=== PATIENT | female | born 1960 | race Caucasian/White ===

== ENCOUNTER 2020-01-18 12:22 | Inpatient (IN) ==
[2020-01-18 12:30] VITALS: BMI 29.3
[2020-01-18] MEDS ORDERED: DUONEB 0.5 MG/3 MG (3 mL) NEB ONE ×4 (12:40→17:06)
[2020-01-18] MEDS ORDERED: SOLU-Medrol 125 MG VIAL IVP ONE (12:40)
[2020-01-18] MEDS ORDERED: NS 1000 ML 1,000 ML ONE (12:46)
[2020-01-18] MEDS ORDERED: SOLU-Medrol 125 MG VIAL ONE (12:46)
[2020-01-18] MEDS ORDERED: NS 1000 ML 1,000 ML IV SCH ×2 (13:00→14:00)
[2020-01-18 13:14] LABS: ABG HCO3 27.4 mmol/L (22-26)
[2020-01-18 13:15] LABS: ABG ALLEN TEST POS
[2020-01-18 13:19] LABS: BASOPHILS % (AUTO) 0.3 % (0.2-1.0); EOSINOPHILS % (AUTO) 0.3 % (0.9-2.9); HEMATOCRIT 43.3 % (36.0-47.0); HEMOGLOBIN 14.7 g/dL (12.0-16.0); LYMPHOCYTES # (AUTO) 0.6 X10^3/uL (1.3-2.9); LYMPHOCYTES % (AUTO) 6.8 % (21.0-51.0); MEAN CORPUSCULAR HEMOGLOBIN 29.7 pg (27.0-34.0); MEAN CORPUSCULAR HGB CONC 33.9 g/dL (33.0-35.0); MEAN CORPUSCULAR VOLUME 87.8 fL (80.0-100.0); MEAN PLATELET VOLUME 8.6 fL (7.4-11.0); MONOCYTES # (AUTO) 0.7 x10^3/uL (0.3-0.8); NEUTROPHILS # (AUTO) 7.8 x10^3/uL (2.2-4.8); NEUTROPHILS % (AUTO) 84.6 % (42.0-75.0); PLATELET COUNT 284 X10^3/uL (150.0-450.0); RED BLOOD COUNT 4.93 X10^6/uL (3.5-5.4); RED CELL DISTRIBUTION WIDTH 13.6 % (11.6-16.5); WHITE BLOOD COUNT 9.2 X10^3/uL (3.6-10.0)
[2020-01-18 13:28] LABS: ALANINE AMINOTRANSFERASE 38 Units/L (12-78); ALBUMIN 2.6 g/dL (3.4-5.0); ALKALINE PHOSPHATASE 154 Units/L (46-116); ASPARTATE AMINO TRANSFERASE 50 Units/L (15-37); BLOOD UREA NITROGEN 15 mg/dL (7-18); CALCIUM 11.2 mg/dL (8.5-10.1); CARBON DIOXIDE 32.7 mmol/L (21-32); CHLORIDE 96 mmol/L (98-107); COR CA(FOR HYPOALB) 12.3 mg/dL (8.5-10.1); COR NA(FOR HYPERGLY) 139 mmol/L (136-145); CREATININE 0.89 mg/dL (0.55-1.02); SODIUM 135 mmol/L (136-145); TOTAL PROTEIN 7.8 g/dL (6.4-8.2); eGFR NON BLACK RACES > 60 (>60)
--- NOTE | 2020-01-18 13:47 | DR.GENAD ---
HPI Time Seen Time Seen by Provider: 01/18/20 12:31 PCP Primary Care Physician: [facility] Complaint/Symptoms Chief Complaint:: PT WAS DIAGNOSED WITH COVID ON 01/06/20 AND WAS TREATED WITH ANTIBIOTICS AND WAS PLACED ON OXYGEN AT 3 LITERS. PT HAS CONTINUES TO BECOME MORE SHORT OF BREATH. IN TRIAGE O2 SAT IS 86% ON 3 LITERS. PT HAD CHEST XRAY TODAY AND WAS DIAGNOSED WITH BILATERAL PNEUMONIA Source History Provided: Patient Mode of Arrival Mode of Arrival: Ambulatory Timing Onset of Chief Complaint: 01/18/20 PMH PMH Past Medical History: Yes Past Medical History: Diabetes and Hypertension Past Medical History Comment: CERVIAL CANCER Past Surgical History: Yes Surgical History: Ortho Surgery Past Surgical History Comment: CERVIAL ABLATION Family History History of Family Medical Conditions: Yes Family Medical History: Diabetes Mellitus, Cancer and Coronary Artery Disease Social History Does patient currently use any type of tobacco product: No Have you used tobacco products in the last 12 months: No Type of Tobacco Use: None Does any household member use tobacco: No Alcohol Use: None Do you use any recreational Drugs:: No Lives With: Family Lives Where: Home Infectious screening In the last 2 months have you had wt loss of >10#?: NO Have you had fever, night sweats or hemotysis?: No Have you traveled outside the country in the last 6 months?: No Isolation: Standard PE Vital Signs Vitals: Temperature 97.9 F Pulse Rate [Right Radial] 109 Pulse Rate 102 Respiratory Rate 22 Blood Pressure 151/80 O2 Sat by Pulse Oximetry 84 COURSE Consultation Called: 13:46 Call Returned: 13:46 Consultation Comments: case discussed admit on covid protocol and order Convalesent plasma ROR Labs Reviewed Result Diagrams: 01/18/20 12:58 01/18/20 12:58 Laboratory: WBC 9.2 X10^3/uL (3.6-10.0) 01/18/20 12:58 RBC 4.93 X10^6/uL (3.5-5.4) 01/18/20 12:58 Hgb 14.7 g/dL (12.0-16.0) 01/18/20 12:58 Hct 43.3 % (36.0-47.0) 01/18/20 12:58 MCV 87.8 fL (80.0-100.0) 01/18/20 12:58 MCH 29.7 pg (27.0-34.0) 01/18/20 12:58 MCHC 33.9 g/dL (33.0-35.0) 01/18/20 12:58 RDW 13.6 % (11.6-16.5) 01/18/20 12:58 Plt Count 284 X10^3/uL (150.0-450.0) 01/18/20 12:58 MPV 8.6 fL (7.4-11.0) 01/18/20 12:58 Neut % (Auto) 84.6 % (42.0-75.0) H 01/18/20 12:58 Lymph % (Auto) 6.8 % (21.0-51.0) L 01/18/20 12:58 [place] % (Auto) 8.0 % (0.0-13.0) 01/18/20 12:58 Eos % (Auto) 0.3 % (0.9-2.9) L 01/18/20 12:58 Baso % (Auto) 0.3 % (0.2-1.0) 01/18/20 12:58 Neut # (Auto) 7.8 x10^3/uL (2.2-4.8) H 01/18/20 12:58 Lymph # (Auto) 0.6 X10^3/uL (1.3-2.9) L 01/18/20 12:58 [place] # (Auto) 0.7 x10^3/uL (0.3-0.8) 01/18/20 12:58 Eos # (Auto) 0.0 x10^3/uL (0.0-0.2) 01/18/20 12:58 Baso # (Auto) 0.0 X10^3/uL (0.0-0.1) 01/18/20 12:58 Absolute Nucleated RBC 0.0 /100WBC 01/18/20 12:58 Sample Site Rrad 01/18/20 13:00 ABG pH 7.490 (7.35-7.45) H 01/18/20 13:00 ABG pCO2 36.0 mmHg (35.0-45.0) 01/18/20 13:00 ABG pO2 42.0 mmHg (80.0-100.0) L* 01/18/20 13:00 ABG HCO3 27.4 mmol/L (22-26) H 01/18/20 13:00 ABG O2 Saturation 82.0 % (90-100) L* 01/18/20 13:00 ABG Base Excess 4.0 mmol/L (-2.0-2.0) H 01/18/20 13:00 Matt Test Pos 01/18/20 13:00 A-a Gradient 141.0 mmHg 01/18/20 13:00 FiO2 32.0 01/18/20 13:00 Blood Gas Comments Wanda well ah 01/18/20 13:00 Sodium 135 mmol/L (136-145) L 01/18/20 12:58 Corrected Sodium 139 mmol/L (136-145) 01/18/20 12:58 Potassium 4.2 mmol/L (3.5-5.1) 01/18/20 12:58 Chloride 96 mmol/L (98-107) L 01/18/20 12:58 Carbon Dioxide 32.7 mmol/L (21-32) H 01/18/20 12:58 BUN 15 mg/dL (7-18) 01/18/20 12:58 Creatinine 0.89 mg/dL (0.55-1.02) 01/18/20 12:58 Est GFR (MDRD) Af Amer > 60 (>60) 01/18/20 12:58 Est GFR (MDRD) Non-Af > 60 (>60) 01/18/20 12:58 Glucose 255 mg/dL (65-99) H 01/18/20 12:58 Calcium 11.2 mg/dL (8.5-10.1) H 01/18/20 12:58 Corrected Calcium 12.3 mg/dL (8.5-10.1) H 01/18/20 12:58 Total Bilirubin 0.50 mg/dL (0.2-1.0) 01/18/20 12:58 AST 50 Units/L (15-37) H 01/18/20 12:58 ALT 38 Units/L (12-78) 01/18/20 12:58 Alkaline Phosphatase 154 Units/L (46-116) H 01/18/20 12:58 C-Reactive Protein 141.20 mg/L (0-3.0) H 01/18/20 12:58 Total Protein 7.8 g/dL (6.4-8.2) 01/18/20 12:58 Albumin 2.6 g/dL (3.4-5.0) L 01/18/20 12:58 Globulin 5.2 g/dL (2.5-4.5) H 01/18/20 12:58 Albumin/Globulin Ratio 0.5 Ratio (1.1-2.1) L 01/18/20 12:58 Opioid Opioid Risk Tool Total: 0 Total Score Risk Category: Low Risk Copyright: [place] predicting aberrant behaviors
[2020-01-18] MEDS ORDERED: REMDESIVIR (INVESTIGATIONAL DRUG GS-5734) 200 MG in NS 250 ML IV 250 ML IV NR (14:00)
[2020-01-18] MEDS ORDERED: PLAQUENIL PO SCH (14:00)
--- NOTE | 2020-01-18 14:26 | RAD ---
HISTORYLOW SP02, COVID +STUDYCHEST, 1 VIEWCOMPARISONNoneFINDINGSThe heart is normal. The pulmonary vessels are slightly engorged centrally. There is hazy airspace opacity along the left midlung extending inferiorly and along the right midlung laterally. No effusion is seen.IMPRESSIONMinimal central pulmonary congestion.Hazy left basilar opacity and minimal right midlung opacity which could represent multisegmental bronchopneumonia. Recommend follow-up until complete resolution.Electronically signed by: DA DEL CID (Jan 18, 2020 14:26:00)
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
[2020-01-18] MEDS: ASCORBIC ACID INJ MULTI-DOSE VIAL 1,500 MG in NS 100 ML IV 100 ML IV SCH ×3 (15:28→21:05)
[2020-01-18] MEDS: ZINC SULFATE PO SCH ×2 (15:34→21:05)
[2020-01-18] MEDS: VITAMIN A PO SCH (15:35)
[2020-01-18] MEDS: DECADRON TAB PO SCH (15:42)
[2020-01-18] MEDS: TRICOR TAB 160 MG PO SCH (15:42)
[2020-01-18] MEDS: VITAMIN D (1.25MG) PO SCH (15:43)
[2020-01-18] MEDS ORDERED: MAALOX or MYLANTA PO PRN (16:13)
[2020-01-18] MEDS: NS 1000 ML 1,000 ML IV SCH (16:19)
[2020-01-18] MEDS: LOVENOX INJ 30 MG SYR SC SCH ×2 (16:19→21:05)
[2020-01-18] MEDS: ACTOS PO SCH (17:00)
[2020-01-18] MEDS: DUONEB 0.5 MG/3 MG (3 mL) NEB SCH ×2 (17:10→20:52)
[2020-01-18] MEDS: HumuLIN R SUBCUT PRN ×2 (17:24→21:05)
[2020-01-18] MEDS: SNACK - Diabetic Appropriate PO SCH (20:30)
[2020-01-18] MEDS: PULMICORT NEB TX 0.5 MG NEB SCH (20:52)
[2020-01-18] MEDS: GLUCOPHAGE XR 24-HR PO SCH (21:05)
[2020-01-19] MEDS: NS 1000 ML 1,000 ML IV SCH ×4 (00:40→15:22)
[2020-01-19] MEDS: ASCORBIC ACID INJ MULTI-DOSE VIAL 1,500 MG in NS 100 ML IV 100 ML IV SCH ×4 (03:11→21:19)
[2020-01-19 05:15] LABS: BASOPHILS % (AUTO) 0.2 % (0.2-1.0); LYMPHOCYTES # (AUTO) 0.4 X10^3/uL (1.3-2.9); LYMPHOCYTES % (AUTO) 6.3 % (21.0-51.0); MEAN CORPUSCULAR HEMOGLOBIN 29.4 pg (27.0-34.0); MEAN CORPUSCULAR HGB CONC 33.4 g/dL (33.0-35.0); MEAN CORPUSCULAR VOLUME 88.1 fL (80.0-100.0); MEAN PLATELET VOLUME 9.3 fL (7.4-11.0); MONOCYTES # (AUTO) 0.5 x10^3/uL (0.3-0.8); MONOCYTES % (AUTO) 9.2 % (0.0-13.0); NEUTROPHILS # (AUTO) 4.8 x10^3/uL (2.2-4.8); NEUTROPHILS % (AUTO) 84.3 % (42.0-75.0); PLATELET COUNT 249 X10^3/uL (150.0-450.0); RED BLOOD COUNT 4.08 X10^6/uL (3.5-5.4); RED CELL DISTRIBUTION WIDTH 13.6 % (11.6-16.5); WHITE BLOOD COUNT 5.7 X10^3/uL (3.6-10.0)
[2020-01-19 05:25] LABS: ALANINE AMINOTRANSFERASE 26 Units/L (12-78); ALKALINE PHOSPHATASE 120 Units/L (46-116); ASPARTATE AMINO TRANSFERASE 23 Units/L (15-37); BLOOD UREA NITROGEN 11 mg/dL (7-18); CALCIUM 9.3 mg/dL (8.5-10.1); CARBON DIOXIDE 27.8 mmol/L (21-32); CHLORIDE 103 mmol/L (98-107); COR CA(FOR HYPOALB) 10.9 mg/dL (8.5-10.1); COR NA(FOR HYPERGLY) 143 mmol/L (136-145); CREATININE 0.77 mg/dL (0.55-1.02); SODIUM 138 mmol/L (136-145); TOTAL PROTEIN 6.2 g/dL (6.4-8.2); eGFR NON BLACK RACES > 60 (>60)
[2020-01-19] MEDS: HumuLIN R SUBCUT PRN ×4 (05:58→21:36)
[2020-01-19] MEDS: ACTOS PO SCH (08:11)
[2020-01-19] MEDS: GLUCOPHAGE XR 24-HR PO SCH ×2 (08:12→21:20)
[2020-01-19] MEDS: DECADRON TAB PO SCH (08:12)
[2020-01-19] MEDS: LOVENOX INJ 30 MG SYR SC SCH ×2 (08:12→21:20)
[2020-01-19] MEDS: VITAMIN A PO SCH (08:13)
[2020-01-19] MEDS: TRICOR TAB 160 MG PO SCH (08:13)
[2020-01-19] MEDS: ZINC SULFATE PO SCH ×2 (08:13→21:21)
[2020-01-19] MEDS: VITAMIN D (1.25MG) PO SCH (08:13)
[2020-01-19] MEDS: REMDESIVIR (INVESTIGATIONAL DRUG GS-5734) 100 MG in NS 250 ML IV 250 ML IV SCH (08:49)
[2020-01-19] MEDS ORDERED: REMDESIVIR (INVESTIGATIONAL DRUG GS-5734) 100 MG in NS 250 ML IV 250 ML IV SCH (09:00)
[2020-01-19] MEDS: DUONEB 0.5 MG/3 MG (3 mL) NEB SCH ×4 (09:35→21:20)
[2020-01-19] MEDS: PULMICORT NEB TX 0.5 MG NEB SCH ×2 (09:35→21:20)
[2020-01-19] MEDS ORDERED: DILAUDID INJ IVP PRN (10:35)
[2020-01-19] MEDS: ACCUPRIL PO SCH (11:19)
[2020-01-19] MEDS: SEMAGLUTIDE 7 MG PO SCH (13:15)
[2020-01-19] MEDS: NORGESTIMATE ETHINYL ESTRADIOL PO SCH (13:15)
[2020-01-19] MEDS: TORADOL 15 MG VIAL IVP PRN (18:57)
[2020-01-19] MEDS ORDERED: TUSSIONEX PENNKINETIC SUSP ONE (21:03)
[2020-01-19] MEDS: SNACK - Diabetic Appropriate PO SCH (21:19)
[2020-01-20] MEDS: NS 1000 ML 1,000 ML IV SCH ×3 (01:58→17:06)
[2020-01-20] MEDS: ASCORBIC ACID INJ MULTI-DOSE VIAL 1,500 MG in NS 100 ML IV 100 ML IV SCH ×4 (03:02→21:53)
[2020-01-20 06:29] LABS: ALANINE AMINOTRANSFERASE 22 Units/L (12-78); ALKALINE PHOSPHATASE 121 Units/L (46-116); ASPARTATE AMINO TRANSFERASE 17 Units/L (15-37); BASOPHILS % (AUTO) 0.1 % (0.2-1.0); BLOOD UREA NITROGEN 17 mg/dL (7-18); CALCIUM 9.1 mg/dL (8.5-10.1); CARBON DIOXIDE 28.4 mmol/L (21-32); CHLORIDE 107 mmol/L (98-107); COR CA(FOR HYPOALB) 10.7 mg/dL (8.5-10.1); COR NA(FOR HYPERGLY) 147 mmol/L (136-145); CREATININE 0.77 mg/dL (0.55-1.02); HEMATOCRIT 32.9 % (36.0-47.0); HEMOGLOBIN 10.8 g/dL (12.0-16.0); LYMPHOCYTES # (AUTO) 0.6 X10^3/uL (1.3-2.9); LYMPHOCYTES % (AUTO) 3.1 % (21.0-51.0); MEAN CORPUSCULAR HEMOGLOBIN 29.2 pg (27.0-34.0); MEAN CORPUSCULAR HGB CONC 32.9 g/dL (33.0-35.0); MEAN CORPUSCULAR VOLUME 88.8 fL (80.0-100.0); MEAN PLATELET VOLUME 9.1 fL (7.4-11.0); MONOCYTES # (AUTO) 0.8 x10^3/uL (0.3-0.8); MONOCYTES % (AUTO) 4.3 % (0.0-13.0); NEUTROPHILS # (AUTO) 16.8 x10^3/uL (2.2-4.8); NEUTROPHILS % (AUTO) 92.5 % (42.0-75.0); PLATELET COUNT 264 X10^3/uL (150.0-450.0); RED CELL DISTRIBUTION WIDTH 13.6 % (11.6-16.5); SODIUM 142 mmol/L (136-145); TOTAL PROTEIN 6.4 g/dL (6.4-8.2); WHITE BLOOD COUNT 18.1 X10^3/uL (3.6-10.0); eGFR NON BLACK RACES > 60 (>60)
[2020-01-20] MEDS: HumuLIN R SUBCUT PRN ×3 (06:30→21:55)
[2020-01-20 07:28] LABS: PLATELET MORPHOLOGY COMMENT NORMAL (NORMAL)
[2020-01-20] MEDS: ACCUPRIL PO SCH (08:00)
[2020-01-20] MEDS: VITAMIN D3 125 mcg (5,000 UNITS) PO SCH (08:00)
[2020-01-20] MEDS: NORGESTIMATE ETHINYL ESTRADIOL PO SCH (08:00)
[2020-01-20] MEDS: DUONEB 0.5 MG/3 MG (3 mL) NEB SCH ×5 (08:00→20:40)
[2020-01-20] MEDS: LOVENOX INJ 30 MG SYR SC SCH ×2 (08:00→21:54)
[2020-01-20] MEDS: SEMAGLUTIDE 7 MG PO SCH (08:00)
[2020-01-20] MEDS: ZINC SULFATE PO SCH ×2 (08:00→21:55)
[2020-01-20] MEDS: TRICOR TAB 160 MG PO SCH (08:00)
[2020-01-20] MEDS: GLUCOPHAGE XR 24-HR PO SCH ×2 (08:00→21:54)
[2020-01-20] MEDS: VITAMIN A PO SCH (08:00)
[2020-01-20] MEDS: REMDESIVIR (INVESTIGATIONAL DRUG GS-5734) 100 MG in NS 250 ML IV 250 ML IV SCH (08:00)
[2020-01-20] MEDS: ACTOS PO SCH (08:00)
[2020-01-20] MEDS: DECADRON TAB PO SCH (08:00)
[2020-01-20] MEDS: PULMICORT NEB TX 0.5 MG NEB SCH ×2 (08:00→20:40)
[2020-01-20] MEDS ORDERED: ATIVAN TAB 0.5 MG PO PRN (08:53)
[2020-01-20] MEDS ORDERED: IPRATROPIUM BROMIDE 42 MCG/SPRAY ENOSTRIL PRN (08:59)
[2020-01-20] MEDS: ROCEPHIN VIAL 1 GRAM 1 G in NS 100 ML IV + SPIKE MINIBAG* 100 ML IV SCH (11:29)
[2020-01-20] MEDS: FLONASE NASAL SPRAY ENOSTRIL SCH ×2 (11:40→21:53)
[2020-01-20] MEDS: SNACK - Diabetic Appropriate PO SCH (20:20)
[2020-01-21] MEDS: TORADOL 15 MG VIAL IVP PRN ×2 (00:08→12:42)
[2020-01-21] MEDS: NS 1000 ML 1,000 ML IV SCH ×4 (00:17→16:56)
[2020-01-21] MEDS: ASCORBIC ACID INJ MULTI-DOSE VIAL 1,500 MG in NS 100 ML IV 100 ML IV SCH ×4 (04:00→21:00)
[2020-01-21 05:28] LABS: BASOPHILS % (AUTO) 0.1 % (0.2-1.0); EOSINOPHILS % (AUTO) 0.3 % (0.9-2.9); HEMATOCRIT 32.6 % (36.0-47.0); HEMOGLOBIN 10.7 g/dL (12.0-16.0); LYMPHOCYTES # (AUTO) 0.9 X10^3/uL (1.3-2.9); LYMPHOCYTES % (AUTO) 6.4 % (21.0-51.0); MEAN CORPUSCULAR HEMOGLOBIN 29.3 pg (27.0-34.0); MEAN CORPUSCULAR HGB CONC 32.9 g/dL (33.0-35.0); MEAN CORPUSCULAR VOLUME 89.2 fL (80.0-100.0); MEAN PLATELET VOLUME 9.3 fL (7.4-11.0); MONOCYTES # (AUTO) 0.6 x10^3/uL (0.3-0.8); MONOCYTES % (AUTO) 4.3 % (0.0-13.0); NEUTROPHILS # (AUTO) 13.1 x10^3/uL (2.2-4.8); NEUTROPHILS % (AUTO) 88.9 % (42.0-75.0); PLATELET COUNT 281 X10^3/uL (150.0-450.0); RED BLOOD COUNT 3.65 X10^6/uL (3.5-5.4); RED CELL DISTRIBUTION WIDTH 13.8 % (11.6-16.5); WHITE BLOOD COUNT 14.7 X10^3/uL (3.6-10.0)
[2020-01-21 05:35] LABS: ALANINE AMINOTRANSFERASE 19 Units/L (12-78); ALBUMIN 1.8 g/dL (3.4-5.0); ALKALINE PHOSPHATASE 111 Units/L (46-116); ASPARTATE AMINO TRANSFERASE 20 Units/L (15-37); BLOOD UREA NITROGEN 15 mg/dL (7-18); CALCIUM 8.5 mg/dL (8.5-10.1); CARBON DIOXIDE 29.9 mmol/L (21-32); CHLORIDE 104 mmol/L (98-107); COR CA(FOR HYPOALB) 10.3 mg/dL (8.5-10.1); COR NA(FOR HYPERGLY) 142 mmol/L (136-145); SODIUM 139 mmol/L (136-145); eGFR NON BLACK RACES > 60 (>60)
[2020-01-21] MEDS: SEMAGLUTIDE 7 MG PO SCH ×2 (06:18→08:43)
[2020-01-21] MEDS: HumuLIN R SUBCUT PRN ×3 (06:19→21:00)
[2020-01-21] MEDS: GLUCOPHAGE XR 24-HR PO SCH ×2 (08:40→09:44)
[2020-01-21] MEDS: ACCUPRIL PO SCH (08:41)
[2020-01-21] MEDS: ACTOS PO SCH (08:41)
[2020-01-21] MEDS: LOVENOX INJ 30 MG SYR SC SCH ×2 (08:41→21:00)
[2020-01-21] MEDS: VITAMIN A PO SCH (08:42)
[2020-01-21] MEDS: ZINC SULFATE PO SCH ×2 (08:42→21:00)
[2020-01-21] MEDS: FLONASE NASAL SPRAY ENOSTRIL SCH ×2 (08:43→21:00)
[2020-01-21] MEDS: NORGESTIMATE ETHINYL ESTRADIOL PO SCH (08:44)
[2020-01-21] MEDS: DECADRON TAB PO SCH (08:44)
[2020-01-21] MEDS: VITAMIN D3 125 mcg (5,000 UNITS) PO SCH (08:45)
[2020-01-21] MEDS: TRICOR TAB 160 MG PO SCH (08:45)
[2020-01-21] MEDS: PULMICORT NEB TX 0.5 MG NEB SCH ×2 (09:00→21:25)
[2020-01-21] MEDS: DUONEB 0.5 MG/3 MG (3 mL) NEB SCH ×2 (09:00→21:25)
[2020-01-21] MEDS: REMDESIVIR (INVESTIGATIONAL DRUG GS-5734) 100 MG in NS 250 ML IV 250 ML IV SCH (09:43)
[2020-01-21] MEDS: ROCEPHIN VIAL 1 GRAM 1 G in NS 100 ML IV + SPIKE MINIBAG* 100 ML IV SCH (10:58)
[2020-01-21] MEDS: SNACK - Diabetic Appropriate PO SCH (20:00)
[2020-01-21] MEDS: TUSSIONEX PENNKINETIC SUSP PO PRN (22:45)
[2020-01-22] MEDS: NS 1000 ML 1,000 ML IV SCH ×4 (00:37→18:52)
[2020-01-22] MEDS: ASCORBIC ACID INJ MULTI-DOSE VIAL 1,500 MG in NS 100 ML IV 100 ML IV SCH ×4 (03:30→21:00)
[2020-01-22 04:56] LABS: BASOPHILS % (AUTO) 0.3 % (0.2-1.0); EOSINOPHILS # (AUTO) 0.1 x10^3/uL (0.0-0.2); HEMATOCRIT 35.6 % (36.0-47.0); HEMOGLOBIN 11.7 g/dL (12.0-16.0); LYMPHOCYTES # (AUTO) 0.9 X10^3/uL (1.3-2.9); LYMPHOCYTES % (AUTO) 6.6 % (21.0-51.0); MEAN CORPUSCULAR HEMOGLOBIN 29.2 pg (27.0-34.0); MEAN CORPUSCULAR HGB CONC 32.8 g/dL (33.0-35.0); MEAN PLATELET VOLUME 9.3 fL (7.4-11.0); MONOCYTES # (AUTO) 0.3 x10^3/uL (0.3-0.8); MONOCYTES % (AUTO) 2.4 % (0.0-13.0); NEUTROPHILS # (AUTO) 12.4 x10^3/uL (2.2-4.8); NEUTROPHILS % (AUTO) 89.7 % (42.0-75.0); PLATELET COUNT 293 X10^3/uL (150.0-450.0); RED CELL DISTRIBUTION WIDTH 13.6 % (11.6-16.5); WHITE BLOOD COUNT 13.8 X10^3/uL (3.6-10.0)
[2020-01-22] MEDS: TORADOL 15 MG VIAL IVP PRN (04:58)
[2020-01-22 05:07] LABS: ALANINE AMINOTRANSFERASE 29 Units/L (12-78); ALBUMIN 2.1 g/dL (3.4-5.0); ALKALINE PHOSPHATASE 132 Units/L (46-116); ASPARTATE AMINO TRANSFERASE 50 Units/L (15-37); BLOOD UREA NITROGEN 14 mg/dL (7-18); CALCIUM 8.8 mg/dL (8.5-10.1); CARBON DIOXIDE 29.6 mmol/L (21-32); CHLORIDE 101 mmol/L (98-107); COR CA(FOR HYPOALB) 10.3 mg/dL (8.5-10.1); COR NA(FOR HYPERGLY) 139 mmol/L (136-145); CREATININE 0.61 mg/dL (0.55-1.02); SODIUM 138 mmol/L (136-145); eGFR NON BLACK RACES > 60 (>60)
[2020-01-22] MEDS: SEMAGLUTIDE 7 MG PO SCH ×2 (07:01→10:47)
[2020-01-22] MEDS: PULMICORT NEB TX 0.5 MG NEB SCH ×2 (08:50→21:45)
[2020-01-22] MEDS: DUONEB 0.5 MG/3 MG (3 mL) NEB SCH ×4 (08:50→21:45)
[2020-01-22] MEDS: ACCUPRIL PO SCH (09:27)
[2020-01-22] MEDS: ACTOS PO SCH (09:28)
[2020-01-22] MEDS: DECADRON TAB PO SCH (09:29)
[2020-01-22] MEDS: FLONASE NASAL SPRAY ENOSTRIL SCH ×2 (09:30→21:00)
[2020-01-22] MEDS: LOVENOX INJ 30 MG SYR SC SCH ×2 (09:31→21:00)
[2020-01-22] MEDS: REMDESIVIR (INVESTIGATIONAL DRUG GS-5734) 100 MG in NS 250 ML IV 250 ML IV SCH (09:32)
[2020-01-22] MEDS: ROCEPHIN VIAL 1 GRAM 1 G in NS 100 ML IV + SPIKE MINIBAG* 100 ML IV SCH (09:34)
[2020-01-22] MEDS: TRICOR TAB 160 MG PO SCH (09:35)
[2020-01-22] MEDS: VITAMIN D3 125 mcg (5,000 UNITS) PO SCH (09:35)
[2020-01-22] MEDS: VITAMIN A PO SCH (09:36)
[2020-01-22] MEDS: ZINC SULFATE PO SCH ×2 (09:36→21:00)
[2020-01-22] MEDS ORDERED: VITAMIN B-12 INJ IM ONE (09:43)
[2020-01-22] MEDS: NORGESTIMATE ETHINYL ESTRADIOL PO SCH (10:30)
[2020-01-22] MEDS: TESSALON PERLES PO PRN ×2 (10:58→21:00)
[2020-01-22] MEDS: MAGNESIUM SULFATE 1 GRAM/100 mL PREMIX 1 G/100 ML BAG IV SCH (14:02)
[2020-01-22] MEDS: LIBRIUM PO SCH ×2 (14:56→22:14)
[2020-01-22] MEDS: TUSSIONEX PENNKINETIC SUSP PO PRN (15:35)
[2020-01-22] MEDS: HumuLIN R SUBCUT PRN ×2 (17:30→21:00)
[2020-01-22] MEDS: SNACK - Diabetic Appropriate PO SCH (20:00)
[2020-01-23] MEDS: NS 1000 ML 1,000 ML IV SCH ×2 (00:38→01:22)
[2020-01-23] MEDS: TUSSIONEX PENNKINETIC SUSP PO PRN (02:39)
[2020-01-23] MEDS: ASCORBIC ACID INJ MULTI-DOSE VIAL 1,500 MG in NS 100 ML IV 100 ML IV SCH ×2 (04:00→08:00)
[2020-01-23] MEDS ORDERED: TESSALON PERLES PO ONE (04:36)
[2020-01-23 05:11] LABS: BASOPHILS % (AUTO) 0.3 % (0.2-1.0); HEMATOCRIT 36.6 % (36.0-47.0); LYMPHOCYTES # (AUTO) 0.4 X10^3/uL (1.3-2.9); LYMPHOCYTES % (AUTO) 2.7 % (21.0-51.0); MEAN CORPUSCULAR HEMOGLOBIN 29.3 pg (27.0-34.0); MEAN CORPUSCULAR VOLUME 88.8 fL (80.0-100.0); MEAN PLATELET VOLUME 9.3 fL (7.4-11.0); MONOCYTES # (AUTO) 0.5 x10^3/uL (0.3-0.8); NEUTROPHILS # (AUTO) 14.4 x10^3/uL (2.2-4.8); PLATELET COUNT 283 X10^3/uL (150.0-450.0); RED BLOOD COUNT 4.12 X10^6/uL (3.5-5.4); RED CELL DISTRIBUTION WIDTH 13.7 % (11.6-16.5); WHITE BLOOD COUNT 15.3 X10^3/uL (3.6-10.0)
[2020-01-23 05:20] LABS: ALANINE AMINOTRANSFERASE 22 Units/L (12-78); ALBUMIN 1.8 g/dL (3.4-5.0); ALKALINE PHOSPHATASE 162 Units/L (46-116); ASPARTATE AMINO TRANSFERASE 32 Units/L (15-37); BLOOD UREA NITROGEN 15 mg/dL (7-18); CALCIUM 8.5 mg/dL (8.5-10.1); CARBON DIOXIDE 27.1 mmol/L (21-32); CHLORIDE 101 mmol/L (98-107); COR CA(FOR HYPOALB) 10.3 mg/dL (8.5-10.1); COR NA(FOR HYPERGLY) 139 mmol/L (136-145); CREATININE 0.78 mg/dL (0.55-1.02); SODIUM 136 mmol/L (136-145); TOTAL PROTEIN 6.7 g/dL (6.4-8.2); eGFR NON BLACK RACES > 60 (>60)
[2020-01-23 05:30] LABS: PLATELET MORPHOLOGY COMMENT NORMAL (NORMAL)
[2020-01-23] MEDS: TESSALON PERLES PO PRN (06:40)
[2020-01-23] MEDS: HumuLIN R SUBCUT PRN ×2 (06:41→12:26)
[2020-01-23] MEDS: SEMAGLUTIDE 7 MG PO SCH ×2 (06:42→09:37)
[2020-01-23] MEDS: DUONEB 0.5 MG/3 MG (3 mL) NEB SCH (08:00)
[2020-01-23] MEDS: PULMICORT NEB TX 0.5 MG NEB SCH (08:00)
[2020-01-23] MEDS: MAGNESIUM SULFATE 1 GRAM/100 mL PREMIX 1 G/100 ML BAG IV SCH (09:00)
[2020-01-23] MEDS: ROCEPHIN VIAL 1 GRAM 1 G in NS 100 ML IV + SPIKE MINIBAG* 100 ML IV SCH (09:00)
[2020-01-23] MEDS: ACTOS PO SCH (09:28)
[2020-01-23] MEDS: DECADRON TAB PO SCH (09:29)
[2020-01-23] MEDS: FLONASE NASAL SPRAY ENOSTRIL SCH (09:30)
[2020-01-23] MEDS: LIBRIUM PO SCH (09:31)
[2020-01-23] MEDS: ZINC SULFATE PO SCH (09:32)
[2020-01-23] MEDS: VITAMIN D3 125 mcg (5,000 UNITS) PO SCH (09:33)
[2020-01-23] MEDS: VITAMIN A PO SCH (09:33)
[2020-01-23] MEDS: TRICOR TAB 160 MG PO SCH (09:33)
[2020-01-23] MEDS: NORGESTIMATE ETHINYL ESTRADIOL PO SCH (09:34)
[2020-01-23] MEDS: LOVENOX INJ 30 MG SYR SC SCH (09:36)
[2020-01-23] MEDS ORDERED: ACCUPRIL PO ONE ×2 (09:39→09:41)
[2020-01-23] MEDS: ACCUPRIL PO SCH (09:42)
[2020-01-23] MEDS ORDERED: ATIVAN INJ 2 MG VIAL ONE (10:14)
[2020-01-23] MEDS ORDERED: VASOTEC INJ 2.5 MG VIAL ONE (11:39)
[2020-01-23 12:08] LABS: ABG HCO3 20.9 mmol/L (22-26)
[2020-01-23 12:09] LABS: ABG ALLEN TEST POS
[2020-01-23] MEDS ORDERED: DIPRIVAN VIAL ONE (12:30)
[2020-01-23] MEDS ORDERED: QUELICIN (OR ANECTINE) ONE (12:30)
[2020-01-23] MEDS ORDERED: NORCURON INJ 10 MG VIAL ONE (12:30)
[2020-01-23] MEDS ORDERED: VERSED ONE (12:30)
--- NOTE | 2020-01-23 12:42 | CT ---
HISTORYNEW ONSET OF LEFT SIDED WEAKNESSSTUDYBRAIN W/O CONCOMPARISONNoneTECHNIQUESerial axial images were obtained from the skull base to the vertex without infusion of IV contrast. Coronal and sagittal images were also submitted. Dose reduction techniques including Automated Exposure Control (AEC) and adjustment of mA and kV were utilized.FINDINGSNo definite evidence of acute intracranial hemorrhage or mass is identified. The ventricles, sulci, and cisterns demonstrate an appearance consistent with a mild degree of generalized atrophy. Patchy areas of decreased attenuation within the periventricular, subcortical, and subinsular white matter suggest changes of chronic small vessel ischemic disease. No evidence of significant midline shift is identified. No definite abnormal extra axial fluid collections are appreciated. The visualized paranasal sinuses are grossly unremarkable. If symptoms or clinical concerns persist recommend continued follow up for further evaluation.IMPRESSIONNo CT evidence of acute intracranial abnormality is appreciated.Electronically signed by: LG BOO (Jan 23, 2020 12:42:36)
[2020-01-23] MEDS ORDERED: DIPRIVAN PREMIX 1 GRAM IV 1,000 MG/100 ML VIAL ONE (12:56)
[2020-01-23] MEDS ORDERED: XOPENEX 1.25 MG/3 ML NEBULE NEB SCH (13:00)
[2020-01-23] MEDS ORDERED: LOPRESSOR INJ 5 MG AMP IVP ONE (13:12)
[2020-01-23] MEDS ORDERED: DIPRIVAN PREMIX 1 GRAM IV 1,000 MG/100 ML VIAL IV PRN (13:13)
[2020-01-23] MEDS ORDERED: LOPRESSOR INJ 5 MG AMP ONE (13:18)
--- NOTE | 2020-01-23 13:46 | RAD ---
HISTORYCentral line ET tubeSTUDYPortable AP [id number]/21/2020FINDINGSHeart size upper normal. Interval development of extensive diffuse airspace disease involving both lungs. Endotracheal tube is in mid trachea. A right IJ line extends to the SVC and terminates just proximal to cavoatrial junction.IMPRESSIONInterval progression of bilateral infiltrates/pneumonia. Intubation and insertion of right jugular line, position as noted. No pneumothorax seen.Electronically signed by: SANDRA STORM (Jan 23, 2020 13:46:16)
--- NOTE | 2020-01-23 13:59 | DR.UPDATE ---
H&P Update History and Physical Update: History and Physical reviewed and patient examined. Changes noted: NO Yes with the following:will intubate and place central line H&P Reviewed: Yes Patient was examined?: Yes Procedures (ALL) - Central Line Placement PCM.CLCO: written consent Time out performed: Yes Patient placed pm monitor/pulse ox: Yes MD prep: mask, gown, gloves, other Centrial line prep: povidone-iodine 1%, sterile drapes applied Ultrasound used for placement: Yes (right ij id'd via u/s) Central line lumen ininserted: triple (cannulation of right ij under direct u/s vis.) Post procedure: sutured in place, good blood return, all ports aspirated, flushed,capped, sterile dressing applied Post procedure xray: tip oc catheter in good position, no pneumothorax seen Patient tolerated procedure: Yes Complications: none - Intubation Time out performed: Yes Sedative: etomidate (20mg) paralytic: succinylchline (100mg. vecuronium 10mg after return of spontaneous ventilation) Laryngoscope: fiber optic video scope (glidescope 3) ET tube size: 7.5 Tube secured depth: 21 Tube placement confirmation: visualized tube passing through cords, equal breath sounds bilaterally, no breath sounds over epigastrium, comfirmation by capnometer Patient tolerated procedure: Yes Intubation complications: none
[2020-01-23] MEDS ORDERED: D5W 250 ML IV 250 ML IV ONE (14:29)
[2020-01-23] MEDS ORDERED: CORDARONE INJ 150 MG VIAL ONE (14:43)
[2020-01-23] MEDS ORDERED: NEXTERONE IV 150 MG PREMIX* 150 MG/100 ML BAG IV ONE (14:45)
[2020-01-23] MEDS ORDERED: NEXTERONE IV 360 MG PREMIX* 360 MG/200 ML BAG IV ONE (14:45)
[2020-01-23 20:37] VITALS: BP 138/74
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
== END 2020-01-23 16:47 | disposition expired | DRG 981 ==
LOC: ER 12:50 → ICU 13:51
PROVIDERS: ADMIT Obstetrics & Gynecology Obstetrics; ATTEND Obstetrics & Gynecology Obstetrics
DX: I10 Essential (primary) hypertension; I87.2 Venous insufficiency (chronic) (peripheral); J12.89 Other viral pneumonia; F41.8 Other specified anxiety disorders; I46.9 Cardiac arrest, cause unspecified; U07.1 COVID-19; J01.90 Acute sinusitis, unspecified; E11.65 Type 2 diabetes mellitus with hyperglycemia; R06.02 Shortness of breath